=== PATIENT | male | born 1955 | race African-American/Black ===

== ENCOUNTER 2017-03-23 22:44 | Observation (INO) | payer OTHER ==
[2017-03-23 23:12] LABS: BASOPHILS % (AUTO) 2.5 %; EOSINOPHILS % (AUTO) 1.2 %; HCT - HEMATOCRIT 37.4 % (42.0-52.0); HGB - HEMOGLOBIN 12.4 g/dL (14.0-18.0); LYMPHOCYTES % (AUTO) 29.4 %; MEAN CORPUSCULAR HEMOGLOBIN 28.1 pg (27.0-31.0); MEAN CORPUSCULAR HGB CONC 33.2 g/dL (32.0-36.0); MEAN CORPUSCULAR VOLUME 84.9 fL (80.0-94.0); MEAN PLATELET VOLUME 8.8 fL (7.4-11.4); MONOCYTES % (AUTO) 8.4 %; NEUTROPHILS % (AUTO) 58.5 %; RED BLOOD COUNT 4.41 10^6/uL (4.70-6.10); RED CELL DISTRIBUTION WIDTH 13.5 % (12.0-15.0); UNCORRECTED WHITE BLOOD COUNT 10.2 x10^3/uL; WHITE BLOOD COUNT 10.2 x10^3/uL (4.8-10.8)
[2017-03-23 23:18] LABS: BAND NEUTROPHILS % (MANUAL) 0 %
[2017-03-23 23:21] LABS: ALBUMIN/GLOBULIN RATIO 1.2 (1.0-2.2); BILIRUBIN,TOTAL 0.4 mg/dL (0.2-1.0); CREATININE 0.9 mg/dL (0.6-1.2); TOTAL PROTEIN 7.1 g/dL (6.7-8.2)
--- NOTE | 2017-03-23 23:22 | XRAY Preliminary Report ---
Exam: XR CHEST 2 VIEW PA/LAT IMPRESSION: Mild diffuse bilateral airspace disease with interstitial opacities in the lungs, could r epresent mild pulmonary edema. Infectious/inflammatory disease not excluded. Small bilateral pleural effusions. [facility] SITE ID: [id number]
--- NOTE | 2017-03-23 23:25 | XRAY Report ---
EXAM: CHEST RADIOGRAPHY EXAM DATE: 03/23/2017 11:09 PM. CLINICAL HISTORY: Short of breath. COMPARISON: None. TECHNIQUE: 2 views. FINDINGS: Lungs/Pleura: Mild diffuse bilateral airspace disease with interstitial opacities in the lungs, could represent mild pulmonary edema. Small bilateral pleural effusions. No pneumothorax. Mediastinum: Borderline cardiomegaly. Other: Mild T8 anterior compression of the vertebral body, appears chronic. IMPRESSION: Mild diffuse bilateral airspace disease with interstitial opacities in the lungs, could r epresent mild pulmonary edema. Infectious/inflammatory disease not excluded. Small bilateral pleural effusions. [facility] Referring Provider Line: [phone] SITE ID: [id number]
[2017-03-23 23:31] LABS: LYMPHOCYTES % (MANUAL) 35 %; NEUTROPHILS % (MANUAL) 58 %; TOTAL CELLS COUNTED 100
[2017-03-23 23:32] LABS: NP AUTO DIFFERENTIAL? YES; NP MAN DIFFERENTIAL? NO; PLATELET ESTIMATE, MANUAL NORMAL (130-450,000) (NORMAL); PLATELET MORPHOLOGY NORMAL APPEARANCE (NORMAL)
[2017-03-23] MEDS ORDERED: NITROGLYCERIN 2% PASTE TOP STA (23:40)
[2017-03-23] MEDS ORDERED: FUROSEMIDE 40 MG/4 ML VIAL IVP STA (23:40)
[2017-03-23] MEDS ORDERED: PROMETHAZINE 25 MG/1 ML VIAL IM PRN (23:48)
[2017-03-23] MEDS ORDERED: PROCHLORPERAZINE 10 MG/2 ML VIAL IVP PRN (23:48)
[2017-03-23] MEDS ORDERED: ONDANSETRON 4 MG/2 ML VIAL IVP PRN (23:48)
[2017-03-23] MEDS ORDERED: HYDROcod/ACETAM 10 MG/325 MG TABLET PO PRN (23:48)
[2017-03-23] MEDS ORDERED: HYDROcod/ACETAM 5/325 MG TABLET PO PRN (23:48)
[2017-03-23] MEDS ORDERED: ACETAMINOPHEN 325 MG TABLET PO PRN (23:48)
[2017-03-23] MEDS ORDERED: NITROGLYCERIN 2% PASTE TOP ONE (23:49)
[2017-03-23] MEDS ORDERED: FUROSEMIDE 40 MG/4 ML VIAL ONE (23:49)
--- NOTE | 2017-03-23 23:50 | ED Physician Documentation ---
PD HPI DYSPNEA - Stated complaint Stated Complaint: SOA - Chief complaint Chief Complaint: Resp - History obtained from History obtained from: Patient, Family - History of Present Illness Timing - onset: How many days ago (3) Timing - details: Gradual onset, Intermittant, Waxing and waning Inciting event(s): Exercise Improved by: Sitting up Worsened by: Exertion, Laying flat Associated symptoms: Bilateral edema. No: Fever, Cough, Hemoptysis, Wheezing, Chest pain / discomfort, Diaphoresis Similar symptoms before: No diagnosis Recently seen: Not recently seen - Additional information Additional information: Patient is a 62 year old male with a history of diabetes, htn who is presenting to the emergency department for shortness of breath. Patient states that it gets worse when he caries his groceries, walks or lies down at night. Patient denies any chest pain with the exertion. Patient states that his legs have been swelling for a few years. last echo and stress test was at [facility] in [place] about 5 years prior. Review of Systems Constitutional: denies: Fever, Chills Eyes: denies: Decreased vision, Photophobia Ears: denies: Ear pain, Drainage/discharge Nose: denies: Rhinorrhea / runny nose, Congestion Throat: reports: Reviewed and negative Cardiac: reports: Pedal edema. denies: Chest pain / pressure, Calf pain Respiratory: reports: Dyspnea. denies: Cough, Wheezing GI: denies: Nausea, Vomiting, Constipation, Diarrhea : denies: Dysuria, Frequency Skin: denies: Rash, Lesions Musculoskeletal: reports: Extremity swelling. denies: Neck pain, Back pain, Extremity pain Neurologic: denies: Generalized weakness, Numbness Immunocompromised: denies: Immunocompromised PD PAST MEDICAL HISTORY - Past Medical History Past Medical History: Yes Cardiovascular: Hypertension Endocrine/Autoimmune: Type 2 diabetes - Past Surgical History Past Surgical History: Yes - Present Medications Home Medications: Ambulatory Orders Medication Instructions Recorded Confirmed Aspirin 81 mg DAILY 05/22/14 03/23/17 Cetirizine [ZyrTEC] 10 mg DAILY 05/22/14 03/23/17 Insulin Glargine [Lantus] 42 units SQ DAILY 05/22/14 03/23/17 Lisinopril 40 mg ORAL DAILY 05/22/14 03/23/17 Metformin HCl 1,000 mg ORAL BID 05/22/14 03/23/17 - Allergies Allergies/Adverse Reactions: Allergies Allergy/AdvReac Type Severity Reaction Status Date / Time No Known Drug Allergies Allergy Verified 05/22/14 08:42 - Social History Does the pt smoke?: No Smoking Status: Never smoker Does the pt drink ETOH?: No Does the pt have substance abuse?: No - Immunizations Immunizations are current?: Yes - POLST Patient has POLST: No PD ED PE NORMAL - Vitals Vital signs reviewed: Yes - General General: Alert and oriented X 3 - HEENT HEENT: Atraumatic, PERRL PD ED PE EXPANDED - Respiratory Respiratory: Decreased breath sounds, Right lower lobe, Left lower lobe, Other ( tachypneic) - Abdomen Abdomen: Other (obese) - Extremities Extremities: Pedal edema bilateral Results - Vitals Vitals: Vital Signs - 24 hr 03/23/17 03/23/17 22:46 23:50 Temperature 36.8 C 36.4 C L Heart Rate 71 61 Respiratory 20 22 Rate Blood Pressure 242/72 H 178/66 H O2 Saturation 96 97 Oxygen O2 Source Room air - EKG (time done) 2253 Rate: Rate (enter#) (83) Rhythm: NSR [place]: Normal Intervals: Normal NM QRS: Normal, Low voltage Compare to prior EKG: Old EKG unavailable - Labs Labs: Laboratory Tests 03/23/17 03/23/17 03/23/17 22:58 22:58 22:58 WBC 10.2 RBC 4.41 L Hgb 12.4 L Hct 37.4 L MCV 84.9 MCH 28.1 MCHC 33.2 RDW 13.5 Plt Count 212 MPV 8.8 Neut # Not Reportable Lymph # Not Reportable [place] # Not Reportable Eos # Not Reportable Baso # Not Reportable Absolute Nucleated RBC Not Reportable Total Counted 100 Band Neuts % (Manual) 0 Reactive Lymphs % (Man) 3 Nucleated RBC % Not Reportable Neutrophils # (Manual) 5.9 Lymphocytes # (Manual) 3.9 H Monocytes # (Manual) 0.4 Differential Comment MANUAL DIFFERENTIAL Manual Slide Review Indicated Platelet Estimate NORMAL (130-450,000) Platelet Morphology NORMAL APPEARANCE RBC Morph Micro Appear NORMAL APPEARANCE Sodium 140 Potassium 4.0 Chloride 105 Carbon Dioxide 27 Anion Gap 8.0 BUN 15 Creatinine 0.9 Estimated GFR (MDRD) 103 Glucose 169 H Calcium 9.0 Total Bilirubin 0.4 AST 25 ALT 35 Alkaline Phosphatase 59 Troponin I < 0.04 B-Natriuretic Peptide Total Protein 7.1 Albumin 3.8 Globulin 3.3 Albumin/Globulin Ratio 1.2 Lipase 22 03/23/17 22:58 WBC RBC Hgb Hct MCV MCH MCHC RDW Plt Count MPV Neut # Lymph # [place] # Eos # Baso # Absolute Nucleated RBC Total Counted Band Neuts % (Manual) Reactive Lymphs % (Man) Nucleated RBC % Neutrophils # (Manual) Lymphocytes # (Manual) Monocytes # (Manual) Differential Comment Manual Slide Review Platelet Estimate Platelet Morphology RBC Morph Micro Appear Sodium Potassium Chloride Carbon Dioxide Anion Gap BUN Creatinine Estimated GFR (MDRD) Glucose Calcium Total Bilirubin AST ALT Alkaline Phosphatase Troponin I B-Natriuretic Peptide 151 H Total Protein Albumin Globulin Albumin/Globulin Ratio Lipase - Rads (name of study) chest x-ray Radiology: Final report received (pulmonary edema) PD MEDICAL DECISION MAKING - ED course Complexity details: reviewed old records, reviewed results, re-evaluated patient , considered differential, d/w patient, d/w family ED course: Patient was seen and examined at bedside. ekg was performed and patient was placed on a monitor. IV access was gained and labs were drawn. Patient was sent for imaging. When patient returned from imaging the results were reviewed and showed mild pulmonary edema. Patient was also found to have a bnp of 151. Patient was treated with lasix 40mg iv. nitro was originally ordered but patient's bp had improved even before the lasix was given. Patient and family were made aware of the findings. Case was discussed with the hospitalist who accepted the patient for observation for an echo. Patient was placed in observation in stable condition. Departure - Departure Disposition: ED Place in Observation Clinical Impression: Congestive heart failure Condition: Good
[2017-03-24] MEDS: SODIUM CHLORIDE FLUSH 0.9% 10 ML SYRINGE IVP PRN ×2 (01:20→10:28)
--- NOTE | 2017-03-24 01:51 | HISTORY & PHYSICAL EXAMINATION ---
Chief Complaint - Chief Complaint Chief Complaint: Shortness of air History of Present Illness - Admitted From Admitted From:: Emergency department - History Obtained From Records Reviewed: Yes History obtained from: Patient Exam Limitations: None - History of Present Illness HPI Comment/Other: Patient is a 62-year-old gentleman with a past medical history significant for type 2 diabetes, hypertension, obstructive sleep apnea on CPAP, obesity and history of corneal transplant 5 years ago who presented to the emergency department with a chief complaint of shortness of air. The patient states that he was in his normal state of health until yesterday when he states that he noticed when he was going up and down he would go up the stairs in his house he became winded. At that time the patient did not make much of the however today the patient states that he was returning from the commissary after getting groceries. He states that he carried his groceries up the stairs and when he got to the top of the stairs he states it felt as though he had run a mile. He states that he was completely out of breath and thought he could hear some wheezing. He states that he had to rest for at least a few minutes before he was able to catch his breath again. He states he then went back downstairs to get the rest of the groceries when he got up the stairs again he felt as though he had run a mile and was having respiratory distress and felt as though he could not breathe. The patient states that he again rested for some time before the symptoms seem to resolve. The patient states that he watched football for most of the day but later had to go up the stairs again and had the same symptoms. Although the patient was concerned at this point he did not think it warranted going into the hospital. He states that this evening he went to lie on his bed and place his CPAP machine over his face. He states that when he lied flat he again felt very short of breath and could not keep his CPAP machine on because he states that he was breathing too fast. The patient states that he then looked up symptoms of heart attack on the Internet and found that shortness of breath was 1 of the top symptoms and became very concerned that he may be having a heart attack so he came into the emergency department. The patient states that he was previously having some increased lower extremity edema and was placed on a water pill for that. He states that this is improved since and he was not having any increased lower extremity swelling. The patient also states that he woke up this morning with a headache but otherwise denies any chest pain, palpitations or PND. The patient otherwise denies any blurred vision, runny nose, sore throat, nasal congestion, difficulty swallowing, neck pain, abdominal pain, nausea, vomiting, diaphoresis, urinary urgency, urinary frequency, dysuria, joint pain, joint swelling, muscle aches, back pain, neck stiffness, changes in appetite, recent unintentional weight loss, polydipsia, polyuria or any focal neurologic deficits. On presentation to the emergency department the patient was afebrile and heart rate was within normal limits. The patient however was very hypertensive with initial blood pressure of 242/72 which did improve just with time down to 178/ 66. The patient did appear to be tachypneic when he initially arrived in the emergency department but seem to settle down with time. The patient was not hypoxic. The patient's initial lab work was significant for glucose of 169 and a BNP of 151 otherwise was within normal limits. The patient's troponin was less than 0.04. The patient's chest x-ray showed mild diffuse bilateral airspace disease with interstitial opacities in the lungs, could represent mild pulmonary edema. There was also small bilateral pleural effusions. The patient 's EKG showed a normal sinus rhythm and did not have any ST elevations or ischemic changes to suggest an acute coronary syndrome. Given the patient's very typical presentation of shortness of breath with exertion and orthopnea as well as some lower extremity edema with pulmonary edema on the chest x-ray the patient was thought to have new onset congestive heart failure and was placed in observation for an echocardiogram and treatment with IV Lasix. History - Past Medical History Cardiovascular: reports: Hypertension, Other (Obesity) Respiratory: reports: Sleep apnea, CPAP use Endocrine/Autoimmune: reports: Type 2 diabetes MRSA Hx?: No - Past Surgical History General: reports: Colonoscopy HEENT: reports: Other (Corneal transplant) - Family & Social History Family History: Mother: , CVA/TIA, Diabetes, Type 2, Father: , Sister: , Diabetes, Type 2 Living arrangement: At home Living Situation: With spouse/s.o. Social History Notes: The patient lives in [place] with his whom he has been to for 45 years. The patient has 3 children 2 of whom live on [facility] and one who lives in [place]. The patient is originally from [place], [place] and served in the [employer] for many years eventually retiring from the [employer] in [place]. The patient is a former smoker he quit nearly 30 years ago but did smoke half a pack a day for nearly 25 years. He denies any alcohol or illicit drug use. - Substance History Use: Uses substance without health or social issues: NONE Abuse: Recurrent use of substance despite neg consequences: NONE Dependence: Experiences withdrawal or developed tolerances: NONE - POLST Patient has POLST: No POLST Status: Full Code Meds/Allgy - Home Medications Home Medications: Ambulatory Orders Medication Instructions Recorded Confirmed Aspirin 81 mg DAILY 05/22/14 03/23/17 Cetirizine [ZyrTEC] 10 mg DAILY 05/22/14 03/23/17 Insulin Glargine [Lantus] 42 units SQ DAILY 05/22/14 03/23/17 Lisinopril 40 mg ORAL DAILY 05/22/14 03/23/17 Metformin HCl 1,000 mg ORAL BID 05/22/14 03/23/17 - Allergies Allergies/Adverse Reactions: Allergies Allergy/AdvReac Type Severity Reaction Status Date / Time No Known Drug Allergies Allergy Verified 05/22/14 08:42 Review of Systems - Other Findings Other Findings: A comprehensive review of systems was performed the pertinent positives and negatives are stated above in the HPI and the remainder of the review of systems is negative. Exam - Vital Signs Reviewed Vital Signs: Yes Vital Signs: Vital Signs x48h Temp Pulse Pulse Resp BP BP Pulse Ox 03/24/17 01:00 36.6 C 59 L 18 162/80 H 97 03/23/17 23:50 36.4 C L 61 22 178/66 H 97 - Physical Exam General Appearance: positive: Alert, Mild distress (Short of breath with any exertion) Eyes Bilateral: positive: Normal inspection, PERRL, EOMI, No lid inflammation, Conjunctivae nml, No scleral icterus ENT: positive: ENT inspection nml, Pharynx nml, No signs of dehydration. negative: Purulent nasal drainage, Pharyngeal erythema, Oral lesions Neck: positive: Nml inspection, Thyroid nml, No JVD, Trachea midline. negative : Thyromegaly, Lymphadenopathy (R), Lymphadenopathy (L), Stiff neck, Carotid bruit, Tracheal deviation Respiratory: positive: Chest non-tender, Rales (Bilateral crackles at the bases. As well as fine crackles throughout both lungs), Other (Patient mildly tachypneic but no conversational dyspnea) Cardiovascular: positive: Regular rate & rhythm, No murmur, No gallop Peripheral Pulses: positive: 2+ Abdomen: positive: Non-tender, No organomegaly, Nml bowel sounds, Other (Obese) . negative: Guarding, Rebound, Hepatomegaly Back: positive: Nml inspection. negative: CVA tenderness (R), CVA tenderness (L ) Skin: positive: Color nml, No rash, Warm. negative: Cyanosis, Diaphoresis, Pallor Extremities: positive: Non-tender, Full ROM, Nml appearance, No pedal edema. negative: Joint swelling Neurologic/Psychiatric: positive: Oriented x3, CN's nml (2-12), Motor nml, Sensation nml, Mood/affect nml Conclusion/Plan - Problem List (1) Dyspnea on exertion Conclusion/Plan: Patient presented with dyspnea on exertion. Specifically going up 1 flight of stairs at home. Symptoms started yesterday and have become progressively worse today. Patient also experienced orthopnea. He had bilateral lower extremity edema on presentation 1+ pitting. The patient's chest x-ray showed pulmonary edema and bilateral pleural effusions. Patient was afebrile and had no leukocytosis. Patient had no cough. Patient's troponin and EKG were negative. The patient's presentation seems very typical for congestive heart failure. Patient has no history of congestive heart failure and did have an echocardiogram and stress test 5 years ago that were normal at [facility] in [place]. Patient was hypotensive on presentation and could have pulmonary edema from uncontrolled hypertension. Either way this appears to be new onset congestive heart failure. The patient was not hypoxic but was short of breath and tachypneic on presentation. Patient's symptoms did improve with some IV Lasix in the emergency department. Plan: IV Lasix twice daily Oxygen as needed Monitor I's and O's Daily weights 2 L fluid restriction Echocardiogram If patient has systolic dysfunction we will need to add metoprolol patient is already on lisinopril. If patient has wall motion abnormalities will need to consider transferring him for a cardiac cath. Monitor on telemetry (2) Hypertension Conclusion/Plan: Patient is blood pressure was uncontrolled on presentation. This may have been white coat syndrome as it did improve on its own. However patient's blood pressure was still elevated. The patient is on lisinopril at home. Plan: We will continue the patient's home dose of lisinopril Monitor patient's blood pressure and if the patient's blood pressure continues to be elevated we will may need to add additional antihypertensives Qualifiers: Hypertension type: essential hypertension Qualified Code(s): I10 - Essential (primary) hypertension (3) Diabetes Conclusion/Plan: Patient has insulin-dependent diabetes. Patient's blood glucose was controlled when he presented. Plan: We will place patient on home dose of Lantus We will hold metformin while patient is hospitalized Patient will be placed on sliding scale insulin with meals We will monitor patient's blood glucose before meals at bedtime Qualifiers: Diabetes mellitus type: type 2 (4) MAGDA on CPAP Conclusion/Plan: Patient is on CPAP at home. Patient advised to bring in his CPAP and will be able to use it in the hospital. - Lab Results Lab results reviewed: Yes Fish Bones: 03/23/17 22:58 03/23/17 22:58 Other Lab Results: Laboratory Results WBC 10.2 x10^3/uL (4.8-10.8) 03/23/17 22:58 RBC 4.41 10^6/uL (4.70-6.10) L 03/23/17 22:58 Hgb 12.4 g/dL (14.0-18.0) L 03/23/17 22:58 Hct 37.4 % (42.0-52.0) L 03/23/17 22:58 MCV 84.9 fL (80.0-94.0) 03/23/17 22:58 MCH 28.1 pg (27.0-31.0) 03/23/17 22:58 MCHC 33.2 g/dL (32.0-36.0) 03/23/17 22:58 RDW 13.5 % (12.0-15.0) 03/23/17 22:58 Plt Count 212 10^3/uL (130-450) 03/23/17 22:58 MPV 8.8 fL (7.4-11.4) 03/23/17 22:58 Neut # Not Reportable 03/23/17 22:58 Lymph # Not Reportable 03/23/17 22:58 [place] # Not Reportable 03/23/17 22:58 Eos # Not Reportable 03/23/17 22:58 Baso # Not Reportable 03/23/17 22:58 Absolute Nucleated RBC Not Reportable 03/23/17 22:58 Total Counted 100 03/23/17 22:58 Band Neuts % (Manual) 0 % (0-10) 03/23/17 22:58 Reactive Lymphs % (Man) 3 % 03/23/17 22:58 Nucleated RBC % Not Reportable 03/23/17 22:58 Neutrophils # (Manual) 5.9 10^3/uL (1.5-6.6) 03/23/17 22:58 Lymphocytes # (Manual) 3.9 10^3/uL (1.5-3.5) H 03/23/17 22:58 Monocytes # (Manual) 0.4 10^3/uL (0.0-1.0) 03/23/17 22:58 Differential Comment MANUAL DIFFERENTIAL 03/23/17 22:58 Manual Slide Review Indicated 03/23/17 22:58 Platelet Estimate NORMAL (130-450,000) (NORMAL) 03/23/17 22:58 Platelet Morphology NORMAL APPEARANCE (NORMAL) 03/23/17 22:58 RBC Morph Micro Appear NORMAL APPEARANCE (NORMAL) 03/23/17 22:58 Sodium 140 mmol/L (135-145) 03/23/17 22:58 Potassium 4.0 mmol/L (3.5-5.0) 03/23/17 22:58 Chloride 105 mmol/L (101-111) 03/23/17 22:58 Carbon Dioxide 27 mmol/L (21-32) 03/23/17 22:58 Anion Gap 8.0 (6-13) 03/23/17 22:58 BUN 15 mg/dL (6-20) 03/23/17 22:58 Creatinine 0.9 mg/dL (0.6-1.2) 03/23/17 22:58 Estimated GFR (MDRD) 103 (>89) 03/23/17 22:58 Glucose 169 mg/dL (70-100) H 03/23/17 22:58 Calcium 9.0 mg/dL (8.5-10.3) 03/23/17 22:58 Total Bilirubin 0.4 mg/dL (0.2-1.0) 03/23/17 22:58 AST 25 IU/L (10-42) 03/23/17 22:58 ALT 35 IU/L (10-60) 03/23/17 22:58 Alkaline Phosphatase 59 IU/L (42-121) 03/23/17 22:58 Troponin I < 0.04 ng/mL (<0.49) 03/23/17 22:58 B-Natriuretic Peptide 151 pg/mL (5-100) H 03/23/17 22:58 Total Protein 7.1 g/dL (6.7-8.2) 03/23/17 22:58 Albumin 3.8 g/dL (3.2-5.5) 03/23/17 22:58 Globulin 3.3 g/dL (2.1-4.2) 03/23/17 22:58 Albumin/Globulin Ratio 1.2 (1.0-2.2) 03/23/17 22:58 Lipase 22 U/L (22-51) 03/23/17 22:58 - Diagnostic Imaging Results Diagnostic Imaging Results: positive: Final report reviewed Diagnostic Imaging Results Comments: Chest x-ray Impression: Mild diffuse bilateral airspace disease with interstitial opacities in the lungs , could represent mild pulmonary edema. Infectious/inflammatory disease not excluded. Bilateral pleural effusions. - EKG Results EKG Interpreted Independently: Yes EKG Findings: Normal sinus rhythm, no ST elevations or ischemic changes noted. Issues/Core Measures - Anticipated LOS Anticipated Stay Length: Less than 2 midnights - DVT/VTE - Prophylaxis VTE/DVT Prophylaxis med ordered at admit?: Yes
[2017-03-24] MEDS ORDERED: SODIUM CHLORIDE FLUSH 0.9% 10 ML SYRINGE IVP SCH (06:00)
[2017-03-24 06:03] LABS: BASOPHILS % (AUTO) 0.3 %; EOSINOPHILS # (AUTO) 0.1 10^3/uL (0.0-0.7); HGB - HEMOGLOBIN 12.1 g/dL (14.0-18.0); LYMPHOCYTES # (AUTO) 1.8 10^3/uL (1.5-3.5); LYMPHOCYTES % (AUTO) 19.2 %; MEAN CORPUSCULAR HEMOGLOBIN 28.5 pg (27.0-31.0); MEAN CORPUSCULAR HGB CONC 33.7 g/dL (32.0-36.0); MEAN CORPUSCULAR VOLUME 84.6 fL (80.0-94.0); MEAN PLATELET VOLUME 8.1 fL (7.4-11.4); MONOCYTES % (AUTO) 10.6 %; NEUTROPHILS # (AUTO) 6.5 10^3/uL (1.5-6.6); NEUTROPHILS % (AUTO) 68.9 %; NUCLEATED RED BLOOD CELLS AUTO 0.1 /100WBC; RED BLOOD COUNT 4.25 10^6/uL (4.70-6.10); RED CELL DISTRIBUTION WIDTH 13.5 % (12.0-15.0); UNCORRECTED WHITE BLOOD COUNT 9.4 x10^3/uL; WHITE BLOOD COUNT 9.4 x10^3/uL (4.8-10.8)
[2017-03-24 06:16] LABS: ALBUMIN/GLOBULIN RATIO 1.2 (1.0-2.2); BILIRUBIN,TOTAL 0.5 mg/dL (0.2-1.0); CALCIUM 8.6 mg/dL (8.5-10.3); CREATININE 0.8 mg/dL (0.6-1.2); MAGNESIUM 1.7 mg/dL (1.7-2.8); POTASSIUM 3.7 mmol/L (3.5-5.0); TOTAL PROTEIN 6.7 g/dL (6.7-8.2)
[2017-03-24 06:37] LABS: HEMOGLOBIN A1C 1.45 g/dL
--- NOTE | 2017-03-24 07:25 | PROVIDER PROGRESS NOTE ---
Subjective - Prog Note Date Prog Note Date: 03/24/17 Prog Note Time: 07:23 - Subjective Pt reports feeling: Improved (PATIENT SEEN AT BEDSIDE.) Current Medications - Current Medications Current Medications: Medications Summary Sodium Chloride (Normal Saline Flush 0.9%) 10 ml IVP PRN PRN PRN Reason: NEEDED PER PROVIDER ORDERS Last Admin: 03/24/17 01:20 Dose: 10 ml Sodium Chloride (Normal Saline Flush 0.9%) 10 ml IVP Q8HR MADAY Last Admin: 03/24/17 05:49 Dose: 10 ml Discontinued Medications Furosemide (Lasix Inj 40 Mg Vial) 40 mg IVP ONCE STA Stop: 03/23/17 23:41 Last Admin: 03/23/17 23:51 Dose: 40 mg Nitroglycerin (Nitro-Bid (Pkt)) 1 inch TOP ONCE STA Stop: 03/23/17 23:41 Last Admin: 03/23/17 23:54 Dose: Objective - Vital Signs/Intake & Output Reviewed Vital Signs: Yes Vital Signs: Vital Signs x48h Temp Pulse Pulse Resp BP BP Pulse Ox 03/24/17 05:00 36.8 C 64 18 147/57 H 97 03/24/17 01:00 36.6 C 59 L 18 162/80 H 97 03/23/17 23:50 36.4 C L 61 22 178/66 H 97 Intake & Output: Intake & Output 03/21/17 03/22/17 03/23/17 03/24/17 23:59 23:59 23:59 23:59 Intake Total 250 Output Total 2575 Balance -2325 - Objective General Appearance: positive: No acute distress, Alert Eyes Bilateral: positive: Normal inspection, PERRL, EOMI ENT: positive: ENT inspection nml, Pharynx nml, No signs of dehydration Neck: positive: Nml inspection, Thyroid nml, No JVD, Trachea midline Respiratory: positive: Chest non-tender, No respiratory distress, Rales Cardiovascular: positive: Regular rate & rhythm, No murmur, No gallop Abdomen: positive: Non-tender, No organomegaly, Nml bowel sounds, No distention Back: positive: Nml inspection Extremities: positive: Non-tender, Full ROM, Pedal edema (BILATERAL LOWER LEGS) Neurologic/Psychiatric: positive: Oriented x3, CN's nml (2-12), Motor nml, Sensation nml, Mood/affect nml - Lab Results Fish Bones: 03/24/17 05:41 03/24/17 05:41 Other Labs: Lab Results x24hrs 03/24/17 03/24/17 03/24/17 Range/Units 05:41 05:41 05:41 WBC (4.8-10.8) x10^3/uL RBC (4.70-6.10) 10^6/uL Hgb (14.0-18.0) g/dL Hct (42.0-52.0) % MCV (80.0-94.0) fL MCH (27.0-31.0) pg MCHC (32.0-36.0) g/dL RDW (12.0-15.0) % Plt Count (130-450) 10^3/uL MPV (7.4-11.4) fL Neut # (1.5-6.6) 10^3/uL Lymph # (1.5-3.5) 10^3/uL Pacific # (0.0-1.0) 10^3/uL Eos # (0.0-0.7) 10^3/uL Baso # (0.0-0.1) 10^3/uL Absolute Nucleated RBC x10^3/uL Nucleated RBC % /100WBC Sodium (135-145) mmol/L Potassium (3.5-5.0) mmol/L Chloride (101-111) mmol/L Carbon Dioxide (21-32) mmol/L Anion Gap (6-13) BUN (6-20) mg/dL Creatinine (0.6-1.2) mg/dL Estimated GFR (MDRD) (>89) Glucose (70-100) mg/dL Glycated Hemoglobin 13.0 H (4.6-6.2) % Estim Average Glucose 326 H (70-100) Calcium (8.5-10.3) mg/dL Magnesium (1.7-2.8) mg/dL Total Bilirubin (0.2-1.0) mg/dL AST (10-42) IU/L ALT (10-60) IU/L Alkaline Phosphatase (42-121) IU/L Troponin I < 0.04 (<0.49) ng/mL B-Natriuretic Peptide 152 H (5-100) pg/mL Total Protein (6.7-8.2) g/dL Albumin (3.2-5.5) g/dL Globulin (2.1-4.2) g/dL Albumin/Globulin Ratio (1.0-2.2) 03/24/17 03/24/17 Range/Units 05:41 05:41 WBC 9.4 (4.8-10.8) x10^3/uL RBC 4.25 L (4.70-6.10) 10^6/uL Hgb 12.1 L (14.0-18.0) g/dL Hct 36.0 L (42.0-52.0) % MCV 84.6 (80.0-94.0) fL MCH 28.5 (27.0-31.0) pg MCHC 33.7 (32.0-36.0) g/dL RDW 13.5 (12.0-15.0) % Plt Count 189 (130-450) 10^3/uL MPV 8.1 (7.4-11.4) fL Neut # 6.5 (1.5-6.6) 10^3/uL Lymph # 1.8 (1.5-3.5) 10^3/uL Pacific # 1.0 (0.0-1.0) 10^3/uL Eos # 0.1 (0.0-0.7) 10^3/uL Baso # 0.0 (0.0-0.1) 10^3/uL Absolute Nucleated RBC 0.01 x10^3/uL Nucleated RBC % 0.1 /100WBC Sodium 138 (135-145) mmol/L Potassium 3.7 (3.5-5.0) mmol/L Chloride 105 (101-111) mmol/L Carbon Dioxide 26 (21-32) mmol/L Anion Gap 7.0 (6-13) BUN 13 (6-20) mg/dL Creatinine 0.8 (0.6-1.2) mg/dL Estimated GFR (MDRD) 118 (>89) Glucose 125 H (70-100) mg/dL Glycated Hemoglobin (4.6-6.2) % Estim Average Glucose (70-100) Calcium 8.6 (8.5-10.3) mg/dL Magnesium 1.7 (1.7-2.8) mg/dL Total Bilirubin 0.5 (0.2-1.0) mg/dL AST 18 (10-42) IU/L ALT 29 (10-60) IU/L Alkaline Phosphatase 52 (42-121) IU/L Troponin I (<0.49) ng/mL B-Natriuretic Peptide (5-100) pg/mL Total Protein 6.7 (6.7-8.2) g/dL Albumin 3.6 (3.2-5.5) g/dL Globulin 3.1 (2.1-4.2) g/dL Albumin/Globulin Ratio 1.2 (1.0-2.2) - Diagnostic Imaging Diagnostic Imaging Results: positive: Final report reviewed Assessment/Plan - Problem List (1) Dyspnea on exertion Impression: ACUTE WITH CHF, UNSPECIFIED. patient having an echo today. continue on Lasix IV at 40mg BID.
[2017-03-24] MEDS ORDERED: POTASSIUM CHLORIDE 20 MEQ TABLET PO SCH (08:00)
[2017-03-24] MEDS ORDERED: INSULIN ASPART 300 UNIT/3 ML PEN SUBQ SCH (08:00)
[2017-03-24] MEDS ORDERED: MAGNESIUM SULFATE 2 GRAM 2 GM/50 ML BAG IV SCH (08:00)
[2017-03-24] MEDS ORDERED: ENOXAPARIN 40 MG/0.4 ML SYRINGE SUBQ SCH (09:00)
[2017-03-24] MEDS ORDERED: LISINOPRIL 20 MG TABLET PO SCH (09:00)
[2017-03-24] MEDS ORDERED: ASPIRIN CHEW 81 MG TABLET PO SCH (09:00)
[2017-03-24] MEDS ORDERED: INSULIN GLARGINE 300 UNIT/3 ML PEN SUBQ SCH (09:00)
[2017-03-24] MEDS ORDERED: FUROSEMIDE 40 MG/4 ML VIAL IVP SCH (09:00)
[2017-03-24] MEDS ORDERED: POLYETHYLENE GLYCOL 3350 17 GM PACKET PO SCH (09:00)
[2017-03-24] MEDS ORDERED: FAMOTIDINE 20 MG TABLET PO SCH (09:00)
[2017-03-24 11:43] VITALS: BP 159/63
--- NOTE | 2017-03-24 12:41 | Discharge Plan ---
Discharge Plan Disposition: Home, Self Care Condition: Good Prescriptions: Furosemide [Lasix] 40 mg PO DAILY #10 tablet RX: Potassium Chloride [K-Dur] 20 meq PO DAILYWM #20 tablet Diet: Diabetic Activity Restrictions: Activity as Tolerated Shower Restrictions: No Driving Restrictions: No Weight Bearing: Full Weight Instruction Topics: Heart Failure Warning Signs, Heart Failure Tracking Weight , Heart Failure Diet Changes Additional Instructions or Follow Up instructions: PLEASE SEE YOUR PRIMARY CARE PROVIDER WITHIN THE NEXT WEEK. YOU WILL NEED TO MAKE SURE TO LET THEM KNOW YOU ARE TAKING LASIX NOW. YOU WILL NEED TO MONITOR YOUR BLOOD GLUCOSE WITH EACH MEAL AND TALK WITH YOUR PCP ABOUT INCREASING YOUR INSULIN DOSAGE. YOU WILL NEED TO CONTINUE ON A LOW CALORIE DIABETIC DIET. YOUR HEMOGLOBIN A1C WAS 13 AND NEEDS BETTER CONTROL. YOU NEED TO GET DAILY EXERCISE, WALKING IS GOOD. YOU NEED TO AVOID SODA AND HIGH SODIUM FOODS THAT CAN WORSEN THE CONGESTIVE HEART FAILURE. RETURN TO THE ER IF YOUR SYMPTOMS RETURN OR IF YOU HAVE CHEST PAIN OR SHORTNESS OF BREATH THEN CALL 911. No Smoking: If you smoke, Please STOP! Call for help. Follow-up with: Noe Hartley DO [Primary Care Provider] -
--- NOTE | 2017-03-24 12:48 | DISCHARGE SUMMARY ---
"Discharge Summary Admit Date: 03/23/17 Discharge Date: 03/24/17 Discharging Provider: LARRY TURNER APRN Primary Care Provider: BE CARLSON MD Code Status: Attempt Resuscitation Condition at Discharge: Good Discharge Disposition: 01 Home, Self Care Discharge Facility Name: HOME - DIAGNOSES Admission Diagnoses: 1. ACUTE DYSPNEA WITH EXERTION POSSIBLE CHF, UNSPECIFIED 2. INSULIN DEPENDENT DIABETES MELLITUS WITH COMPLICATIONS 3. HYPERTENSIVE HEART DISEASE WITH CHF, UNSPECIFIED 4. MORBID OBESITY WITH BMI>40 WITH UNCONTROLLED DIABETES MELLITUS 5. CHRONIC OBSTRUCTIVE SLEEP APNEA Discharge Diagnoses with Status of Each Condition: 1. ACUTE DYSPNEA WITH EXERTION WITH DIASTOLIC CONGESTIVE HEART FAILURE WITH EF 70% 2. INSULIN DEPENDENT DIABETES MELLITUS WITH COMPLICATIONS 3. HYPERTENSIVE HEART DISEASE WITH DIASTOLIC CHF 4. MORBID OBESITY WITH BMI>40 WITH UNCONTROLLED DIABETES MELLITUS INSULIN DEPENDENT 5. CHRONIC OBSTRUCTIVE SLEEP APNEA WITH LVH 6. MIXED HYPERLIPIDEMIA - HPI History of Present Illness: History of Present Illness HPI Comment/Other: Patient is a 62-year-old gentleman with a past medical history significant for type 2 diabetes, hypertension, obstructive sleep apnea on CPAP, obesity and history of corneal transplant 5 years ago who presented to the emergency department with a chief complaint of shortness of air. The patient states that he was in his normal state of health until yesterday when he states that he noticed when he was going up and down he would go up the stairs in his house he became winded. At that time the patient did not make much of the however today the patient states that he was returning from the commissary after getting groceries. He states that he carried his groceries up the stairs and when he got to the top of the stairs he states it felt as though he had run a mile. He states that he was completely out of breath and thought he could hear some wheezing. He states that he had to rest for at least a few minutes before he was able to catch his breath again. He states he then went back downstairs to get the rest of the groceries when he got up the stairs again he felt as though he had run a mile and was having respiratory distress and felt as though he could not breathe. The patient states that he again rested for some time before the symptoms seem to resolve. The patient states that he watched football for most of the day but later had to go up the stairs again and had the same symptoms. Although the patient was concerned at this point he did not think it warranted going into the hospital. He states that this evening he went to lie on his bed and place his CPAP machine over his face. He states that when he lied flat he again felt very short of breath and could not keep his CPAP machine on because he states that he was breathing too fast. The patient states that he then looked up symptoms of heart attack on the Internet and found that shortness of breath was 1 of the top symptoms and became very concerned that he may be having a heart attack so he came into the emergency department. The patient states that he was previously having some increased lower extremity edema and was placed on a water pill for that. He states that this is improved since and he was not having any increased lower extremity swelling. The patient also states that he woke up this morning with a headache but otherwise denies any chest pain, palpitations or PND. The patient otherwise denies any blurred vision, runny nose, sore throat, nasal congestion, difficulty swallowing, neck pain, abdominal pain, nausea, vomiting, diaphoresis, urinary urgency, urinary frequency, dysuria, joint pain, joint swelling, muscle aches, back pain, neck stiffness, changes in appetite, recent unintentional weight loss, polydipsia, polyuria or any focal neurologic deficits. On presentation to the emergency department the patient was afebrile and heart rate was within normal limits. The patient however was very hypertensive with initial blood pressure of 242/72 which did improve just with time down to 178/ 66. The patient did appear to be tachypneic when he initially arrived in the emergency department but seem to settle down with time. The patient was not hypoxic. The patient's initial lab work was significant for glucose of 169 and a BNP of 151 otherwise was within normal limits. The patient's troponin was less than 0.04. The patient's chest x-ray showed mild diffuse bilateral airspace disease with interstitial opacities in the lungs, could represent mild pulmonary edema. There was also small bilateral pleural effusions. The patient 's EKG showed a normal sinus rhythm and did not have any ST elevations or ischemic changes to suggest an acute coronary syndrome. Given the patient's very typical presentation of shortness of breath with exertion and orthopnea as well as some lower extremity edema with pulmonary edema on the chest x-ray the patient was thought to have new onset congestive heart failure and was placed in observation for an echocardiogram and treatment with IV Lasix. - CONSULTS | PROCEDURES Consultations: NONE Procedures: ECHOCARDIOGRAM WITH IMPRESSION OF DIASTOLIC CHF WITH EF 70-75% - HOSPITAL COURSE Hospital Course: PATIENT WAS ADMITTED OBSERVATION FOR CONGESTIVE HEART FAILURE. HOSPITAL TREATMENT IS FOLLOWS: 1. ACUTE DYSPNEA WITH EXERTION WITH DIASTOLIC CONGESTIVE HEART FAILURE WITH EF 70% Patient admitted with echo completed and showed an EF of 70-75%. he was started on Lasix 40mg po daily and given potassium supplementation. he was put on supplemental oxygen as needed with NC. he continued on ZAK inhibitor home dosage. he was given an aspirin daily. He was instructed to elevate legs when sitting and provided VIKRAM hose. prescription for Lasix and potassium was given at discharge 2. INSULIN DEPENDENT DIABETES MELLITUS WITH COMPLICATIONS Patient hemoglobin A1C was 13. He was provided nutrition counseling and diabetic counseling for meal and portion control. He was on diabetic diet with sliding scale insulin as coverage. He continued on home dosage of lantus at 42 units at night 3. HYPERTENSIVE HEART DISEASE WITH DIASTOLIC CHF Patient continued on lisinopril and on telemetry. He had an EKG and cardiac markers were trended. troponins were negative 4. MORBID OBESITY WITH BMI>40 WITH UNCONTROLLED DIABETES MELLITUS INSULIN DEPENDENT Patient was counseled on diet and diabetes control. He was on diabetic diet and encouraged ambulation 5. CHRONIC OBSTRUCTIVE SLEEP APNEA WITH LVH Patient was on CPAP and oxygen NC. monitored pulse ox throughout the night. 6. MIXED HYPERLIPIDEMIA Patient is on aspirin therapy and preferred to not take a statin. He agreed to discuss taking statins with his PCP at his appt in the morning. Patient was discharged home with followup in the morning with his PCP and then will be seen by cardiology on referral. He verbally understood all instructions given and able to be safely discharged home. - ALLERGIES Allergies/Adverse Reactions: Allergies Allergy/AdvReac Type Severity Reaction Status Date / Time No Known Drug Allergies Allergy Verified 05/22/14 08:42 - MEDICATIONS Home Medications: Ambulatory Orders Medication Instructions Recorded Confirmed Aspirin 81 mg DAILY 05/22/14 03/23/17 Cetirizine [ZyrTEC] 10 mg DAILY 05/22/14 03/23/17 Insulin Glargine [Lantus] 42 units SQ DAILY 05/22/14 03/23/17 Lisinopril 40 mg ORAL DAILY 05/22/14 03/23/17 Metformin HCl 1,000 mg ORAL BID 05/22/14 03/23/17 Furosemide [Lasix] 40 mg PO DAILY #10 tablet 03/24/17 Potassium Chloride [K-Dur] 20 meq PO DAILYWM #20 tablet 03/24/17 - PHYSICAL EXAM AT DISCHARGE General Appearance: positive: No acute distress, Alert Eyes Bilateral: positive: Normal inspection, PERRL, EOMI ENT: positive: ENT inspection nml, Pharynx nml, No signs of dehydration Neck: positive: Nml inspection, Thyroid nml, No JVD, Trachea midline Respiratory: positive: Chest non-tender, No respiratory distress, Breath sounds nml Cardiovascular: positive: Regular rate & rhythm, No murmur, No gallop Peripheral Pulses: positive: 2+ Abdomen: positive: Non-tender, No organomegaly, Nml bowel sounds, No distention Back: positive: Nml inspection Skin: positive: Color nml, No rash, Warm, Dry Extremities: positive: Non-tender, Full ROM, Nml appearance, No pedal edema Neurologic/Psychiatric: positive: Oriented x3, CN's nml (2-12), Motor nml, Sensation nml, Mood/affect nml Physical Exam Other/Comments: Active Medications Generic Name Dose Route Start Last Admin Trade Name Freq PRN Reason Stop Dose Admin Acetaminophen 650 mg 03/23/17 23:48 Tylenol PO Q4HR PRN Pain 1 to 4 Acetaminophen/Hydrocodone Bitart 1 tab 03/23/17 23:48 [place] 5/325 PO Q4HR PRN Pain 5 to 7 Acetaminophen/Hydrocodone Bitart 1 tab 03/23/17 23:48 [place] 10 Mg/325 Mg PO Q4HR PRN Pain 8 to 10 Aspirin 81 mg 03/24/17 09:00 03/24/17 09:09 [facility] [place] Aspirin PO 81 mg DAILY MADAY Administration Enoxaparin Sodium 40 mg 03/24/17 09:00 03/24/17 09:10 Lovenox SUBQ Not Given DAILY MADAY Famotidine 20 mg 03/24/17 09:00 03/24/17 09:09 Pepcid PO 20 mg DAILY MADAY Administration Furosemide 40 mg 03/24/17 09:00 03/24/17 09:08 Lasix Inj 40 Mg Vial IVP 40 mg BID MADAY Administration Insulin Aspart 1 - 9 unit 03/24/17 08:00 03/24/17 08:02 Novolog SUBQ Not Given 0800,1200,1700,2100 [facility] Protocol Insulin Glargine 42 unit 03/24/17 09:00 03/24/17 09:08 Lantus Solostar SUBQ 42 unit DAILY MADAY Administration Lisinopril 40 mg 03/24/17 09:00 03/24/17 09:09 Zestril PO 40 mg DAILY MADAY Administration Ondansetron HCl 4 mg 03/23/17 23:48 Zofran Inj IVP Q6HR PRN Nausea / Vomiting Polyethylene Glycol 17 gm 03/24/17 09:00 03/24/17 10:27 Miralax PO Not Given DAILY MADAY Potassium Chloride 20 meq 03/24/17 08:00 03/24/17 09:08 K-Dur PO 20 meq DAILYWM MADAY Administration Prochlorperazine Edisylate 10 mg 03/23/17 23:48 Compazine Inj IVP Q6HR PRN Nausea / Vomiting Promethazine HCl 25 mg 03/23/17 23:48 Phenergan Inj IM Q6HR PRN Nausea / Vomiting Sodium Chloride 10 ml 03/23/17 23:48 03/24/17 10:28 Normal Saline Flush 0.9% IVP 10 ml PRN PRN Administration NEEDED PER PROVIDER ORDERS Sodium Chloride 10 ml 03/24/17 06:00 03/24/17 05:49 Normal Saline Flush 0.9% IVP 10 ml Q8HR MADAY Administration Aspirin 81 mg DAILY 05/22/14 Cetirizine [ZyrTEC] 10 mg DAILY 05/22/14 Insulin Glargine [Lantus] 42 units SQ DAILY 05/22/14 Lisinopril 40 mg ORAL DAILY 05/22/14 Metformin HCl 1,000 mg ORAL BID 05/22/14 - LABS Result Diagrams: 03/24/17 05:41 03/24/17 05:41 Other Lab Results: Abnormal Lab Results 03/23/17 03/23/17 03/23/17 22:58 22:58 22:58 RBC 4.41 10^6/uL L 10^6/uL (4.70-6.10) Hgb 12.4 g/dL L g/dL (14.0-18.0) Hct 37.4 % L % (42.0-52.0) Lymphocytes # (Manual) 3.9 10^3/uL H 10^3/uL (1.5-3.5) Glucose 169 mg/dL H mg/dL (70-100) POC Whole Bld Glucose Glycated Hemoglobin Estim Average Glucose B-Natriuretic Peptide 151 pg/mL H pg/mL (5-100) 03/24/17 03/24/17 03/24/17 05:41 05:41 05:41 RBC 4.25 10^6/uL L 10^6/uL (4.70-6.10) Hgb 12.1 g/dL L g/dL (14.0-18.0) Hct 36.0 % L % (42.0-52.0) Lymphocytes # (Manual) Glucose 125 mg/dL H mg/dL (70-100) POC Whole Bld Glucose Glycated Hemoglobin 13.0 % H % (4.6-6.2) Estim Average Glucose 326 H (70-100) B-Natriuretic Peptide 03/24/17 03/24/17 05:41 07:44 RBC Hgb Hct Lymphocytes # (Manual) Glucose POC Whole Bld Glucose 115 mg/dL H mg/dL (70 - 100) Glycated Hemoglobin Estim Average Glucose B-Natriuretic Peptide 152 pg/mL H pg/mL (5-100) - DIAGNOSTIC IMAGING Diagnostic Imaging Results: Final report reviewed - FOLLOW UP Follow Up: PATIENT WAS INSTRUCTED TO SEE HIS PCP WITHIN THE FIRST WEEK OF DISCHARGE. HE VERBALLY UNDERSTOOD. 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 HE WAS INSTRUCTED TO RETURN TO THE ER IF SYMPTOMS BECOME WORSE. HE WAS TOLD TO CALL 911 IF HE HAS CHEST PAIN OR WORSENING SOB HE WAS DISCHARGED HOME WITH STABLE VITAL SIGNS - TIME SPENT Time Spent in Discharge (Minutes): 45 (PLANNING AND DISCHARGE ASSESSMENT)"
== END 2017-03-24 13:13 | disposition home or self-care (01) ==
LOC: ED 22:44 → OBS 23:48
PROVIDERS: ADMIT Internal Medicine; ATTEND Nurse Practitioner
DX: I11.0 Hypertensive heart disease with heart failure (principal); I50.31 Acute diastolic (congestive) heart failure; E11.65 Type 2 diabetes mellitus with hyperglycemia; Z79.4 Long term (current) use of insulin; E66.01 Morbid (severe) obesity due to excess calories; Z68.41 Body mass index [BMI] 40.0-44.9, adult; G47.33 Obstructive sleep apnea (adult) (pediatric); E78.2 Mixed hyperlipidemia; Z79.84 Long term (current) use of oral hypoglycemic drugs; Z79.82 Long term (current) use of aspirin; Z87.891 Personal history of nicotine dependence
CPT/HCPCS: 36415; 71020; 80053; 83036; 83690; 83735; 83880; 84484; 85025; 93005; 93306; 96365; 96375; 99284; A9270; G0378; J1815; 96374

== ENCOUNTER 2017-08-06 07:37 | Day surgery (SDC) | payer OTHER ==
[2017-08-06] MEDS ORDERED: LACTATED RINGERS 1,000 ML IV ONE (08:11)
[2017-08-06] MEDS ORDERED: fentaNYL 100 MCG/2 ML VIAL IVP ONE (09:21)
[2017-08-06] MEDS ORDERED: MIDAZOLAM 2 MG/2 ML VIAL IVP ONE (09:21)
--- NOTE | 2017-08-06 09:57 | PROCEDURE REPORT ---
DATE OF SERVICE: 08/06/2017 Physician: Vaughn Trevino MD PROCEDURE PERFORMED: Colonoscopy with polypectomy. SURGEON: Vaughn Trevino MD PRIMARY CARE: [place]. INDICATION: Screening. PREMEDICATIONS 1. Fentanyl 100 mcg. 2. Versed 5 mg intravenous titration. SEDATE: Total sedation time 17 minutes. DESCRIPTION OF PROCEDURE: After informed consent was obtained, the patient was placed in the left lateral decubitus position. The video colonoscope was introduced into the rectum and slowly advanced to cecum. On slow withdrawal, mucosa was carefully examined. The scope was removed. The patient tolerated the procedure well. BLOOD LOSS: None. COMPLICATIONS: None. FINDINGS 1. A 3 mm polyp at hepatic flexure jumbo biopsied and removed completely. 2. Otherwise, negative colonoscopy to cecum. Pending the biopsy result, patient will need followup colonoscopy in 5-10 years. TD: 08/06/2017 09:56
[2017-08-06 10:29] VITALS: BP 137/81
== END 2017-08-06 07:38 | disposition home or self-care (01) ==
LOC: SDS 07:37
PROVIDERS: ATTEND Internal Medicine
PROC: 0DBL8ZX Excision of Transverse Colon, Via Natural or Artificial Opening Endoscopic, Diagnostic (ICD-10-PCS; principal; 2017-08-06 09:00)
DX: Z12.11 Encounter for screening for malignant neoplasm of colon (principal); D12.3 Benign neoplasm of transverse colon; Z79.84 Long term (current) use of oral hypoglycemic drugs
CPT/HCPCS: 45380; J7120

== ENCOUNTER 2017-11-01 10:45 | Emergency (ER) | payer OTHER ==
--- NOTE | 2017-11-01 12:06 | ED Physician Documentation ---
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 denies: Back pain, Extremity swelling Endocrine: denies: Easy bruising / bleeding Immunocompromised: denies: Immunocompromised PD PAST MEDICAL HISTORY - Past Medical History Cardiovascular: None Respiratory: Sleep apnea, CPAP use Endocrine/Autoimmune: Type 2 diabetes GI: None : None HEENT: None Psych: None Musculoskeletal: Osteoarthritis Derm: None - Past Surgical History Past Surgical History: Yes General: Colonoscopy HEENT: Other - Present Medications Home Medications: Ambulatory Orders Medication Instructions Recorded Confirmed Aspirin 81 mg DAILY 05/22/14 08/06/17 Insulin Glargine [Lantus] 48 units SQ DAILY 05/22/14 08/06/17 Lisinopril 40 mg ORAL DAILY 05/22/14 08/06/17 Metformin HCl 1,000 mg ORAL BID 05/22/14 08/06/17 Cyclobenzaprine [Flexeril] 10 mg PO 11/01/17 Empagliflozin [Jardiance] 10 mg PO 11/01/17 11/01/17 Loratadine 10 mg PO 11/01/17 Meloxicam 15 mg PO 11/01/17 hydroCHLOROthiazide 25 mg PO 11/01/17 [Hydrochlorothiazide] - Allergies Allergies/Adverse Reactions: Allergies Allergy/AdvReac Type Severity Reaction Status Date / Time No Known Drug Allergies Allergy Verified 11/01/17 11:23 - Social History Does the pt smoke?: No Smoking Status: Never smoker Does the pt drink ETOH?: No Does the pt have substance abuse?: No - Immunizations Immunizations are current?: Yes - POLST Patient has POLST: No POLST Status: Full Code PD ED PE NORMAL - Vitals Vital signs reviewed: Yes - Cardiac Cardiac: RRR - Respiratory Respiratory: No respiratory distress - Abdomen Abdomen: Soft, Non tender - Derm Derm: Normal color - Extremities Extremities: No edema, Other (TTP posterior lateral thigh s mass redness swelling warmth) - Neuro Neuro: Alert and oriented X 3, No motor deficit, No sensory deficit Eye Opening: Spontaneous Motor: Obeys Commands Verbal: Oriented GCS Score: 15 Results - Vitals Vitals: Vital Signs - 24 hr 11/01/17 11/01/17 10:49 13:58 Temperature 36.9 C 36.8 C Heart Rate 85 71 Respiratory 18 18 Rate Blood Pressure 170/83 H 132/70 H O2 Saturation 96 97 Oxygen O2 Source Room air - Rads (name of study) doppler Radiology: See rad report (no DVT) PD MEDICAL DECISION MAKING - ED course ED course: reviewed pts MRI - he had no spine lesions, no pelvic mass, no AAA Departure - Departure Disposition: 01 Home, Self Care Clinical Impression: Paresthesia Condition: Good Instructions: ED Paraesthesias Follow-Up: PEDRITO YOO MD [Primary Care Provider] - Comments: The ultrasound was fine No blood clot was seen I looked at your MRI report and it does not seem you had any spine problems or aneurysm that might have caused the numbness and discomfort Your leg does not look infected The kidney tumor could possibly being putting pressure on one of the nerves to your leg causing these symptoms - normally the kidney is a bit higher than would expect to cause these symptoms but the tumor has probably enlarged the kidney I think it is safe for your to go home. If the symptoms go away after the tumor is removed then that was likely the cause. If not you may need further work up such as seeing a neurologist
--- NOTE | 2017-11-01 13:43 | Ultrasound Report ---
EXAM: LEFT LOWER EXTREMITY VENOUS ULTRASOUND EXAM DATE: 11/01/2017 01:17 PM. CLINICAL HISTORY: Left lower extremity pain, known cancer. COMPARISON: None. TECHNIQUE: Real-time sonographic vascular imaging was performed by the associate account director through the lower extremity utilizing both color-flow and Doppler spectral analysis. Multiple signs sales representative static bruno ges were saved for review. FINDINGS: Common Femoral Vein (CFV): Normal. CFV-GSV Junction: Normal. Profunda Femoral Vein (PFV): Normal. Femoral Vein (FV) Prox: Normal. Femoral Vein (FV) Mid: Normal. Femoral Vein (FV) Dist: Normal. Popliteal Vein: Normal. Posterior Tibial Veins: Normal. Peroneal Veins: Normal. Other: None. IMPRESSION: No evidence for deep venous thrombosis. [facility] Referring Provider Line: [phone] SITE ID: [id number]
[2017-11-01 13:59] VITALS: BP 132/70
== END 2017-11-01 14:15 | disposition home or self-care (01) ==
LOC: ED 10:45
DX: R20.2 Paresthesia of skin (principal); M79.652 Pain in left thigh; D49.512 Neoplasm of unspecified behavior of left kidney; G47.30 Sleep apnea, unspecified; E11.9 Type 2 diabetes mellitus without complications; M19.90 Unspecified osteoarthritis, unspecified site; Z79.4 Long term (current) use of insulin; Z79.82 Long term (current) use of aspirin
CPT/HCPCS: 99283

== ENCOUNTER 2018-02-01 07:54 | Emergency (ER) | payer MEDICARE, OTHER ==
[2018-02-01] MEDS ORDERED: DEXAMETHASONE 10 MG/ML VIAL PO STA (08:24)
--- NOTE | 2018-02-01 08:32 | ED Physician Documentation ---
PD HPI ABD PAIN - Stated complaint Stated Complaint: ABD PX/INCISION SITE POST OP - Chief complaint Chief Complaint: Abd Pain - History obtained from History obtained from: Patient - History of Present Illness Timing - onset: How many months ago (2) Timing - duration: Months (2) Timing - details: Abrupt onset, Still present Quality: Sharp, Pain Location: LUQ Radiation: Left flank Improved by: Laying still Worsened by: Moving, Position, Palpation Associated symptoms: Constipation. No: Fever, Nausea, Vomiting, Hematemesis, Diarrhea Similar symptoms before: Diagnosis (incisional pain) Recently seen: Clinic, Surgery - Additional information Additional information: 63-year-old male has had a recent procedure on his left kidney to remove a mass. He had this done 20 November. He has had pain in the incision site since that time and he has had relief of the pain with the use of oxycodone. He has not had improvement in the pain with use of ibuprofen or Tylenol. He has been back to see the surgeon he has been back to see his primary care doctor he has been supplied with pain medications from them and he is now run out. He continues to have this pain especially if he is up and moving around much at all. He does state that he has been fairly sedentary since the surgery to avoid increasing his pain. He also has increased pain when his bladder is full and is relieved somewhat when he empties his bladder. He has not had fever or vomiting. Review of Systems Constitutional: denies: Fever Eyes: denies: Decreased vision Ears: denies: Ear pain Nose: denies: Congestion Throat: denies: Sore throat Cardiac: denies: Chest pain / pressure, Palpitations Respiratory: denies: Dyspnea, Cough GI: reports: Abdominal Pain, Constipation. denies: Nausea, Vomiting, Diarrhea : denies: Dysuria, Frequency Skin: denies: Rash Musculoskeletal: denies: Neck pain, Back pain, Extremity pain PD PAST MEDICAL HISTORY - Past Medical History Past Medical History: Yes Cardiovascular: None Respiratory: Sleep apnea, CPAP use Endocrine/Autoimmune: Type 2 diabetes GI: None : None HEENT: None Psych: None Musculoskeletal: Osteoarthritis Derm: None - Past Surgical History Past Surgical History: Yes General: Colonoscopy HEENT: Other - Present Medications Home Medications: Ambulatory Orders Medication Instructions Recorded Confirmed Aspirin 81 mg DAILY 05/22/14 08/06/17 Insulin Glargine [Lantus] 48 units SQ DAILY 05/22/14 08/06/17 Lisinopril 40 mg ORAL DAILY 05/22/14 08/06/17 Metformin HCl 1,000 mg ORAL BID 05/22/14 08/06/17 Cyclobenzaprine [Flexeril] 10 mg PO 11/01/17 Empagliflozin [Jardiance] 10 mg PO 11/01/17 11/01/17 Loratadine 10 mg PO 11/01/17 Meloxicam 15 mg PO 11/01/17 hydroCHLOROthiazide 25 mg PO 11/01/17 [Hydrochlorothiazide] oxyCODONE/ACET 5/325 [Percocet 5 1 - 2 each PO Q6H PRN #12 tablet 02/01/18 mg/325 mg] - Allergies Allergies/Adverse Reactions: Allergies Allergy/AdvReac Type Severity Reaction Status Date / Time No Known Drug Allergies Allergy Verified 11/01/17 11:23 - Social History Does the pt smoke?: No Smoking Status: Never smoker Does the pt drink ETOH?: No Does the pt have substance abuse?: No - Immunizations Immunizations are current?: Yes - POLST Patient has POLST: No POLST Status: Full Code PD ED PE NORMAL - Vitals Vital signs reviewed: Yes (hypertensive ) - General General: Alert and oriented X 3, No acute distress, Well developed/nourished - HEENT HEENT: Atraumatic, PERRL, EOMI - Respiratory Respiratory: No respiratory distress - Back Back: No spinal TTP, Other (There is a well healed incision on the left anterolateral abdominal wall. There is no obvious inflamation to the incision itself, no drainage and no mass palpable. The area is mildly tender without garding. The patient is able to move about but with some pain. ) - Derm Derm: Normal color, Warm and dry, No rash - Extremities Extremities: No deformity, No edema - Neuro Neuro: Alert and oriented X 3, mangle tender 2-12 intact, No motor deficit, No sensory deficit, Normal speech Eye Opening: Spontaneous Motor: Obeys Commands Verbal: Oriented GCS Score: 15 - Psych Psych: Normal mood, Normal affect Results - Vitals Vitals: Vital Signs - 24 hr 02/01/18 08:05 Temperature 36 C L Heart Rate 76 Respiratory 16 Rate Blood Pressure 176/90 H O2 Saturation 98 Oxygen O2 Source Room air - Labs Labs: Laboratory Tests 02/01/18 08:41 Urine Color YELLOW Urine Clarity CLEAR Urine pH 6.0 Ur Specific [place] 1.025 Urine Protein NEGATIVE Urine Glucose (UA) >=1000 H Urine Ketones NEGATIVE Urine Occult Blood NEGATIVE Urine Nitrite NEGATIVE Urine Bilirubin NEGATIVE Urine Urobilinogen 0.2 (NORMAL) Ur Leukocyte Esterase NEGATIVE Ur Microscopic Review NOT INDICATED Urine Culture Comments NOT INDICATED PD MEDICAL DECISION MAKING - ED course Complexity details: reviewed results, re-evaluated patient, considered differential, d/w patient ED course: 63-year-old male with a surgical procedure to his left kidney who has persistent postoperative pain. I reviewed a recent CT of his abdomen and pelvis and I am able to see where the surgical procedure has been and the tract of healing around it. The patient has had postoperative pain is afebrile has run out of his pain medication 3 days ago and has not developed acute withdrawal symptoms. He is requesting a refill of his pain medication and I have agreed to provide several days worth of pain medication and have indicated to the patient he will need to return to his primary care doctor for continued pain management. In the meantime we have provided the patient with a dose of dexamethasone as well. - Sepsis Event Vital Signs: Vital Signs - 24 hr 02/01/18 08:05 Temperature 36 C L Heart Rate 76 Respiratory 16 Rate Blood Pressure 176/90 H O2 Saturation 98 Oxygen O2 Source Room air Departure - Departure Disposition: 01 Home, Self Care Clinical Impression: Post-operative pain Condition: Stable Instructions: Incision Care Abdomen, ED Strain Abdominal Muscle Follow-Up: PEDRITO YOO MD [Primary Care Provider] - Prescriptions: oxyCODONE/ACET 5/325 [Percocet 5 mg/325 mg] 1 - 2 each PO Q6H PRN #12 tablet PRN Reason: Pain
[2018-02-01 08:53] LABS: BILIRUBIN,URINE NEGATIVE (NEGATIVE); GLUCOSE, URINE (UA) >=1000 mg/dL (NEGATIVE); KETONES,URINE (UA) NEGATIVE (NEGATIVE); LEUKOCYTE ESTERASE, URINE NEGATIVE (NEGATIVE); NITRITE,URINE NEGATIVE (NEGATIVE); OCCULT BLOOD,URINE NEGATIVE (NEGATIVE); PROTEIN,URINE NEGATIVE (NEGATIVE); UROBILINOGEN,URINE 0.2 (NORMAL) E.U./dL (NORMAL)
[2018-02-01 08:55] LABS: CLARITY,URINE CLEAR (CLEAR)
[2018-02-01 09:21] VITALS: BP 178/88
== END 2018-02-01 09:21 | disposition home or self-care (01) ==
LOC: ED 07:54
DX: G89.18 Other acute postprocedural pain (principal); E11.9 Type 2 diabetes mellitus without complications; Z79.4 Long term (current) use of insulin
CPT/HCPCS: 81001; 81003; 87086; 99283

== ENCOUNTER 2018-06-05 15:28 | Outpatient (CLI) | payer MEDICARE, OTHER ==
--- NOTE | 2018-06-06 17:05 | Ultrasound Report ---
Reason: OTHER SPECIFIED DISORDERS OF KIDNEY AND URETER Procedure Date: 06/05/2018 Accession Number: [id number] / [id number] Procedure: US - Retroperitoneal CPT Code: FULL RESULT: EXAM: RENAL ULTRASOUND EXAM DATE: 06/05/2018 04:59 PM. CLINICAL HISTORY: OTHER SPECIFIED DISORDERS OF KIDNEY AND URETER. COMPARISON: None. TECHNIQUE: Real-time scanning was performed with static images obtained. FINDINGS: Right Kidney: 11.6 x 7.4 x 5.6 cm. Normal echotexture with no stones, contour-deforming masses, or hydronephrosis. Left Kidney: 11.6 x 5.8 x 6.7 cm. Normal echotexture with no stones, contour-deforming masses, or hydronephrosis. Bladder: Bilateral jets seen. The prevoid bladder volume was 509 cc. The postvoid bladder volume was 67 cc. Other: Echogenic liver. IMPRESSION: 1. No renal mass, stone or hydronephrosis. Given a history of a renal mass, recommend CT with contrast for further evaluation. 2. Normal bladder. 3. Fatty liver. RADIA
== END 2018-06-05 15:29 | disposition home or self-care (01) ==
LOC: DI 15:28
PROVIDERS: ATTEND Urology
DX: N28.89 Other specified disorders of kidney and ureter (principal); K76.0 Fatty (change of) liver, not elsewhere classified
CPT/HCPCS: 76770

== ENCOUNTER 2018-12-28 10:40 | Outpatient (CLI) | payer MEDICARE, OTHER ==
[2018-12-28 11:28] VITALS: BP 140/65
--- NOTE | 2018-12-28 11:28 | CONSULTATION NOTE ---
Information from patient questionnaire entered by Danuta Poon. I have reviewed and concur with the information entered by Danuta Poon. This document represents the service I personally performed and the decisions made by me, Jose Antonio Osman MD, [facility]. - History of Present Illness Chief Complaint: Other (Previously diagnosed obstructive sleep apnea, last seen 4 years ago) Mr. BARNES was diagnosed to have severe, AHI 48, obstructive sleep apnea- hypopnea syndrome in 2004 in [place] and presented today for consultation to continue CPAP therapy with [facility]. He has a Respironics CPAP that is 4 years old. It is set at 13 cmH20. He wears Respironics Nuance nasal pillows. His DME is [employer]. He uses the device every night and all night averaging 8.5 hours a night. The residual AHI is 0.7. Air leak is minimal. He reports sleeping and feeling significantly better on the treatment. The patient tells me that he normally goes to bed around 10:00 pm, and it takes him approximately 3 minutes to fall asleep. His bed partner can still sleep in the same bed. He can recall waking up on the average of 1 times during the night. Most of the time he wakes up because of having to use the restroom. Generally he can recall having dreams. He usually wakes up at 8:00am and feels refreshed. He usually does not have a morning headache. During the day he does not feel sleepy and fatigued. He has never fallen asleep while driving nor has any accident due to sleepiness. [place] Sleepiness Scale Score: 5 - Past Medical History Past Medical History: Hypertension, Diabetes (TYPE 2) - Allergies/Home Medications Allergies and home medications reviewed: Yes - Social History The patient's occupation is a RE. Patient is and lives in [place]. Smoked in the past 12 months: Yes Years of smokin Alcohol use: No Caffeine use: Yes Amount and frequency: 2 CUPS/DAY - Family History Family history of sleep disordered breathing: Yes Family Hx Sleep Apnea: Mother: Snoring - Review of Systems Weight loss over past 5 years: 20 Cardiovascular: reports: high blood pressure, leg or foot swelling Respiratory: denies: shortness of breath, wheeze, sputum production, chronic cough, other: Gastrointestinal: reports: abdominal pain Urinary: denies: incontinence, frequency, urgency, impotence, other: Neurological: denies: headaches, seizure, head trauma, disorientation, speech dysfunction, gait or balance problems, fainting or unconsciousness, other: Psychiatric: denies: Attention Deficit Hyperactivity, anxiety, depression, mood disorder, claustrophobia, other: Ear/Nose/Throat: reports: wisdom teeth removed Musculoskeletal: reports: joint pain, back pain, muscle pain or cramping - Physical Examination Vital signs obtained and documented by: Dr. Osman Blood Pressure: 140/65 Cuff size: long Heart Rate: 68 O2 Saturation: 96 Height: 5 ft 8 in Weight (kg): 122.47 kg Body Mass Index: 41.0 BMI Classification: Class 3 Neck circumference: 19.5 Mood/affect: normal HEENT: No craniofacial malformation Nostrils: patent to airflow Turbinates: normal Septum: midline Mouth and throat: normal Soft palate: normal Hard palate: normal Uvula: normal Tongue: normal in size Tonsils: absent bilaterally Chin and jaw: normal size and position Neck: normal w/o lymphadenopathy or thyromegaly Heart: regular rate and rhythm Lungs: clear bilaterally Abdomen: soft, non-tender Extremities: no edema or clubbing Neurologic: intact, no focal deficits - Impression 1. Obstructive Sleep Apnea-Hypopnea Syndrome, as previously diagnosed.unrefreshed sleep. The patient continues to have excellent treatment compliance. Narrow oropharynx and obesity are common predisposing factors for obstructive sleep apnea-hypopnea syndrome. The pressure of 13 cmH20 is effective. His nose pillows fit well. Because he is now on Medicare, I will issue him a new prescription for supplies. He would also like to switch DME because [employer] never answer his phone calls. - Plan Prescription made for supplies. Avoid alcohol, sedative and muscle relaxant around bedtime. Attempt to lose weight. Return for follow-up in one year. He will be eligible for a new machine then. I spent 100% of this 15 minute visit face to face with the patient with greater than 50% of this was spent time counseling the patient and coordination of care.
== END 2018-12-28 10:41 | disposition home or self-care (01) ==
LOC: SC 10:40
PROVIDERS: ATTEND Internal Medicine Pulmonary Disease
DX: G47.33 Obstructive sleep apnea (adult) (pediatric) (principal)
CPT/HCPCS: 99203; G0463; 99212

== ENCOUNTER 2019-11-23 09:07 | Outpatient (CLI) | payer MEDICARE, OTHER ==
--- NOTE | 2019-11-23 09:42 | SLEEP CARE CONSULTATION ---
Information from patient questionnaire entered by Nakita Lang. I have reviewed and concur with the information entered by Nakita Lang. This document represents the service I personally performed and the decisions made by me, Jose Antonio Osman MD, [facility]. History of Present Illness Service Date and Time: 11/23/2019906 Previous diagnosis: Severe, Obstructive Sleep Apnea-Hypopnea Syndrome AHI: 48 (in 2003) Reason for follow up: annual (last seen 2018) Equipment type: CPAP Equipment obtained from: [employer] Mask style: Nasal pillows Prior sleep studies: Yes Year and Where: 2003 - [place] [facility] [place] additional information: The patient is here for an annual F/U. He is also eligible for a new machine. He has been completely compliant with the treatment. The compliance rate is 100% these past 6 months. Average usage is 8.9 houirs a night. The pressure is at 13 cmH2O. Residual AHI is 1.5. CPAP Compliance Data - Data Reviewed with Patient Average duration of nightly device use: 8.9 Compliance rate %: 100 (180 days) Current pressure setting (cmH2O): 13 Humidity settin Average residual AHI: 1.5 Average large leak: 2 hr 7 min 52 sec Subjective Initial [place] Sleepiness Scale score: 0 (in 2014) Current [place] Sleepiness Scale score: 2 Allergies and Home Medications Drug allergies reviewed: Yes Home medication list reviewed: Yes Review of Systems Review of systems same as previous: Yes Physical Exam Vital signs obtained and entered by: Deferred due to the COVID-19 pandemic Height: 5 ft 8 in Impression and Plan IMPRESSION: 1. Obstructive Sleep Apnea-Hypopnea Syndrome, severe, with the patient doing well on nasal CPAP therapy. He has excellent compliance and significant clinical improvement. The current pressure appears effective and comfortable. His mask fits well. Overall, he is very satisfied with treatment and plans to continue with it long-term. Because the CPAP is now older than the useful life of 5 years, I will order the patient a new one and make it an autoCPAP set between 8 and 13 cmH2O. PLAN: 1. Prescription made for an autoCPAP, heated humidifier, and related supplies. 2. Try to lose weight 3. Try ResMed N30i mask 4. Return for follow up after one month on the new machine. Visit Type: In Office Time Spent with Patient (minutes): 15 Provider Statement: I spent 100% of the Face to Face Visit with the patient with greater than 50% spent counseling the patient and coordination of care.
== END 2019-11-23 09:08 | disposition home or self-care (01) ==
LOC: SC 09:07
PROVIDERS: ATTEND Internal Medicine Pulmonary Disease
DX: G47.33 Obstructive sleep apnea (adult) (pediatric) (principal)
CPT/HCPCS: 99213; G0463; 99212

== ENCOUNTER 2020-01-20 11:01 | Outpatient (CLI) | payer MEDICARE, OTHER ==
--- NOTE | 2020-01-20 11:53 | SLEEP CARE CONSULTATION ---
Information from patient questionnaire entered by Nakita Lang. I have reviewed and concur with the information entered by Nakita Lang. This document represents the service I personally performed and the decisions made by me, Tanya Natarajan ARNP. History of Present Illness Service Date and Time: 01/20/2020 1101 Previous diagnosis: Severe, Obstructive Sleep Apnea-Hypopnea Syndrome AHI: 48 (in 2003) Reason for follow up: first compliance after device update Equipment type: CPAP Equipment obtained from: [employer] Mask style: Nasal pillows Prior sleep studies: Yes Year and Where: 2003 - in [place], [place] HPI additional information: THIERNO BARNES was diagnosed to have severe, AHI 48, obstructive sleep apnea- hypopnea syndrome and returned today for CPAP therapy first compliance after updating device follow-up. Sleep Study - Results Prior sleep studies: Yes Year and Where: 2003 - in [place], [place] CPAP Compliance Data - Data Reviewed with Patient Average duration of nightly device use: 8 hours 31 minutes Compliance rate %: 100 Current pressure setting (cmH2O): 8-13 Heated hose settin Average residual AHI: 1.8 Central apnea: 0.1 Obstructive apnea: 0.7 Average large leak: 30 seconds Compliance data discussion: DME: [facility], first shipment was of previous type of mask supplies. He was told he will get new mask at end of the month. He is happy with the interactions with this DME at this time. Using nasal mask, [employer] He has back up mask, face masks mistakenly sent to him and told to keep 1 month was last change of nasal cushion Subjective Patient concerns: denies: aerophagia, mask discomfort, air blowing in eyes, mask leak noise, condensation in mask/hose, nasal congestion, dry mouth, nose, throat, epistaxis, other Observed to snore while using device: No Current pressure setting perceived as: comfortable On therapy, patient: reports: sleeping better, awakening more refreshed, being more awake and alert during the day, more rested overall. denies: drowsiness while driving Initial [place] Sleepiness Scale score: 0 (in 2014) Current [place] Sleepiness Scale score: 1 Allergies and Home Medications Drug allergies reviewed: Yes (NKDA) Home medication list reviewed: Yes (no changes) Review of Systems Review of systems same as previous: Yes (no changes) Physical Exam Heart Rate: 76 O2 Saturation: 97 Height: 5 ft 8 in Weight: 265 lb 12.8 oz Body Mass Index: 40.4 BMI Classification: Morbidly Obese Impression and Plan 1. Obstructive Sleep Apnea-Hypopnea Syndrome, severe, with good treatment compliance and good apnea control. On CPAP therapy, there is improved sleep quality and feels more rested overall. He has good apnea control on the new pressure range and good compliance so I feel we should be able to see him next for his annual follow up. Patient's apnea severity and rationale for treatment to reduce apnea, improve sleep quality and reduce cardiovascular and cerebrovascular events was reviewed. I also reviewed the benefit of consistent device use of CPAP for hypertension, diabetes, and migraines. He was mistakenly sent the wrong supplies by the DME but he has talked to them and they will be sending him the right nasal cushion masks at the end of the month. They were unable to take the full face masks back or send him more masks until the next month and he was happy with this and how they are working with him at [facility]. 2. Obesity. Patient has is currently trying to lose weight. He is walking a mile a day with his new dog. Currently patients BMI is 41.0. Obesity increases the risk of apnea, CPAP pressure requirements and overall health risks especially cardiovascular and diabetes. Thus patient is advised to continue to lose weight. A diet consultation can be helpful in achieving optimal weight loss goals. [place] chart was reviewed. Continue auto CPAP pressure at 8-13 cm H2O. Notify me if snoring with the mask or feeling that the pressure is too much or too little. Attempt to lose weight. Return for follow-up in one year, or sooner if concerns arise. Visit Type: In Office Time Spent with Patient (minutes): 22 Provider Statement: I spent 100% of the Face to Face Visit with the patient with greater than 50% spent counseling the patient and coordination of care.
== END 2020-01-20 11:02 | disposition home or self-care (01) ==
LOC: SC 11:01
PROVIDERS: ATTEND Nurse Practitioner Family
DX: G47.33 Obstructive sleep apnea (adult) (pediatric) (principal); E66.01 Morbid (severe) obesity due to excess calories; Z68.41 Body mass index [BMI] 40.0-44.9, adult
CPT/HCPCS: 99213; G0463; 99212

== ENCOUNTER 2021-01-26 08:52 | Outpatient (CLI) | payer MEDICARE, OTHER ==
--- NOTE | 2021-01-26 09:38 | SLEEP CARE CONSULTATION ---
Information from patient questionnaire entered by Nakita Lang. I have reviewed and concur with the information entered by Nakita Lang. This document represents the service I personally performed and the decisions made by , Tanya Natarajan ARNP. History of Present Illness Service Date and Time: 01/26/2021 0852 Previous diagnosis: Severe, Obstructive Sleep Apnea-Hypopnea Syndrome AHI: 48 (in 2003) Reason for follow up: annual (last seen 01/2020) Equipment type: CPAP Equipment obtained from: [facility] (getting supplies as needed) Mask style: Nasal pillows Backup mask available: Yes (old mask) Last cushion change: 2 days ago Prior sleep studies: Yes Year and Where: 2003 - [facility] additional information: THIERNO BARNES was diagnosed to have severe, AHI 48, obstructive sleep apnea- hypopnea syndrome and returned today for CPAP therapy annual follow-up. CPAP Compliance Data - Data Reviewed with Patient Average duration of nightly device use: 8 hr 54 min Compliance rate %: 100 (180 days) Current pressure setting (cmH2O): 8-13 Humidity settin Heated hose settin Average residual AHI: 3.3 Average large leak: 31 min 35 sec Subjective Patient concerns: denies: aerophagia, mask discomfort, air blowing in eyes, mask leak noise, condensation in mask/hose, nasal congestion, dry mouth, nose, throat, epistaxis, other Observed to snore while using device: No Current pressure setting perceived as: comfortable On therapy, patient: reports: sleeping better, awakening more refreshed, being more awake and alert during the day, more rested overall. denies: drowsiness while driving Initial [place] Sleepiness Scale score: 0 (in 2014) Current [place] Sleepiness Scale score: 0 Allergies and Home Medications Home medication list reviewed: Yes (Gabapentin for nerve pain) Review of Systems Review of systems same as previous: No (Nerve block/steroid shots for pain in surgery site from kidney mass removal) Physical Exam Heart Rate: 68 O2 Saturation: 99 Height: 5 ft 8 in Weight: 267 lb Weight change since last visit: 2 lb gain Body Mass Index: 40.6 BMI Classification: Morbidly Obese Impression and Plan 1. Obstructive Sleep Apnea-Hypopnea Syndrome, severe, with excellent treatment compliance and good apnea control. On CPAP therapy, the patient has better sleep quality and is more rested overall. Patient is very satisfied with his CPAP therapy. I informed the patient that [employer] has a recall on several devices like the patients machine. Patient was encouraged to register their device online with [employer] for the recall to see if their device is affected. If their device is affected they should start a claim. Patient denies any black particles seen in machine or hoses, any unusual odors coming from device. Patient has not experienced any physical symptoms such as upper airway irritation, headache, skin or eye irritation, asthma, nausea/vomiting, difficulty breathing or chest pain. Patient informed that they may use an inline CPAP filter that they can obtain online to reduce chance of any particles being inhaled or ingested. We discussed thoroughly the health risks of not using the CPAP versus continuing use with the filter in place. If patient is not able to sleep due to waking up choking, gasping for air or other respiratory distress that they may decide to continue using it until it is either replaced or repaired. Patient voiced understanding and agreement with plan. Patient was encouraged to lose weight for their overall health and to reduce apneas. Patient's apnea severity and rationale for treatment to reduce apnea, improve sleep quality and reduce cardiovascular and cerebrovascular events was reviewed. I also reviewed the benefit of consistent device use of CPAP for hypertension, diabetes and migraines. * Continue auto CPAP pressure at 8-13 cmH2O * Patient to register his device with [employer] recall * Notify me if snoring with mask or feeling that the pressure is too much or too little * Attempt to lose weight * Call this office if any problems using CPAP * Return for follow up in 1 year, or sooner if concerns arise Counseling Topics: Spare mask, Weight loss health impact Visit Type: In Office Time Spent with Patient (minutes): 20 Provider Statement: I spent 100% of the Face to Face Visit with the patient with greater than 50% spent counseling the patient and coordination of care.
== END 2021-01-26 08:53 | disposition home or self-care (01) ==
LOC: SC 08:52
PROVIDERS: ATTEND Nurse Practitioner Family
DX: G47.33 Obstructive sleep apnea (adult) (pediatric) (principal); E66.01 Morbid (severe) obesity due to excess calories; Z68.41 Body mass index [BMI] 40.0-44.9, adult
CPT/HCPCS: 99213; G0463; 99212

== ENCOUNTER 2022-01-01 09:02 | Outpatient (CLI) | payer MEDICARE, OTHER ==
[2022-01-01 09:48] VITALS: BP 132/82
--- NOTE | 2022-01-01 09:48 | SLEEP CARE CONSULTATION ---
Information from patient questionnaire entered by Kenisha So MA. I have reviewed and concur with the information entered by Kenisha So MA. This document represents the service I personally performed and the decisions made by , Tanya Natarajan ARNP. History of Present Illness Service Date and Time: 01/01/2022 0902 Previous diagnosis: Severe, Obstructive Sleep Apnea-Hypopnea Syndrome AHI: 48 (in 2003) Reason for follow up: annual (LAST SEEN 12/2020, JOSE MANUEL, JIMENEZ 12/14/2019, ) Equipment type: CPAP Equipment obtained from: [employer] (getting supplies as needed) Mask style: Nasal pillows Backup mask available: Yes (old mask) Last cushion change: 3 weeks Prior sleep studies: Yes Year and Where: 2003 - in [facility] additional information: THIERNO BARNES was diagnosed to have severe, AHI 48.0, obstructive sleep apnea-hypopnea syndrome and returned today for CPAP therapy annual follow-up. Sleep Study - Results Prior sleep studies: Yes Year and Where: 2003 - in [place], [place] CPAP Compliance Data - Data Reviewed with Patient Average duration of nightly device use: 8 hours 14 minutes Compliance rate %: 96.7 (10/03/21-12/31/21; 87/90 days used) Current pressure setting (cmH2O): 8-13 Humidity setting: off Heated hose settin Average residual AHI: 1.8 Average large leak: 6 mins 31 secs Subjective Patient concerns: denies: aerophagia, mask discomfort, air blowing in eyes, mask leak noise, condensation in mask/hose, nasal congestion, dry mouth, nose, throat, epistaxis, other Observed to snore while using device: No Current pressure setting perceived as: comfortable On therapy, patient: reports: sleeping better, awakening more refreshed, being more awake and alert during the day, more rested overall. denies: drowsiness while driving Initial [place] Sleepiness Scale score: 0 (in 2014) Current [place] Sleepiness Scale score: 0 Allergies and Home Medications Home medication list reviewed: Yes (no changes) Allergy and home medication list: Allergies No Known Drug Allergies Allergy (Verified 11/01/17 11:23) Review of Systems Review of systems same as previous: Yes (no changes) Physical Exam Vital signs obtained and entered by: Moris SO CMA AAKS Blood Pressure: 132/82 (LEFT, ) Heart Rate: 82 O2 Saturation: 98 Height: 5 ft 8 in Weight: 235 lb (CLOTHES) Weight change since last visit: 32 lb loss Body Mass Index: 35.7 BMI Classification: Obese Impression and Plan 1. Obstructive Sleep Apnea-Hypopnea Syndrome, severe, with good treatment compliance and good apnea control. On CPAP therapy, the patient has better sleep quality and is more rested overall. Patient received a new Dreamstation from [email or web address]. We were able to get compliance information from his machine. Patient's apnea severity and rationale for treatment to reduce apnea, improve sleep quality and reduce cardiovascular and cerebrovascular events was reviewed. I also reviewed the benefit of consistent device use of CPAP for hypertension, diabetes and migraines. 2. Obesity, unspecified. Patient has lost weight. Currently patients BMI is 35.7. Obesity increases the risk of apnea, CPAP pressure requirements and overall health risks especially cardiovascular and diabetes. Thus patient is advised to continue to try to lose weight. Weight loss can be done with reducing portion size, reducing refined foods and balancing content with vegetables, fruit and whole grain foods. In addition, patient encouraged to get regular exercise. * Continue auto CPAP pressure at 8-13 cmH2O * Notify me if snoring with mask or feeling that the pressure is too much or too little * Attempt to lose weight * Call this office if any problems using CPAP * Return for follow up in 1 year, or sooner if concerns arise Counseling Topics: Spare mask, Weight loss health impact Visit Type: In Office Time Spent with Patient (minutes): 22 Provider Statement: I spent 100% of the Face to Face Visit with the patient with greater than 50% spent counseling the patient and coordination of care.
== END 2022-01-01 09:03 | disposition home or self-care (01) ==
LOC: SC 09:02
PROVIDERS: ATTEND Nurse Practitioner Family
DX: G47.33 Obstructive sleep apnea (adult) (pediatric) (principal); E66.9 Obesity, unspecified; Z68.35 Body mass index [BMI] 35.0-35.9, adult
CPT/HCPCS: 99213; G0463; 99212

== ENCOUNTER 2023-02-18 08:44 | Outpatient (CLI) | payer MEDICARE, OTHER ==
--- NOTE | 2023-02-18 09:26 | Sleep Patient Instructions ---
Sleep Center Visit Summary - Patient Visit Information Reason for Visit: Annual visit for CPAP therapy - Patient Instructions Additional Instructions: You will continue with CPAP therapy with pressure set at 8-13 cmH2O. A supply prescription will be updated with your DME. We encourage you to continue to try to lose weight. Please follow up with the sleep care office in 1 year. - Clinic Information Contact: [facility] [address] [place] [address] [email or web address] T: [phone]
--- NOTE | 2023-02-18 09:29 | SLEEP CARE CONSULTATION ---
Information from patient questionnaire entered by Yumiko Willard. I have reviewed and concur with the information entered by Yumiko Willard. This document represents the service I personally performed and the decisions made by me, Tanya Natarajan ARNP. History of Present Illness Service Date and Time: 02/18/2023 0844 Previous diagnosis: Severe, Obstructive Sleep Apnea-Hypopnea Syndrome AHI: 48 (in 2003) Reason for follow up: annual (LAST SEEN 12/2021) Equipment type: CPAP (RESMED Airsense 11, 07/2022) Equipment obtained from: [employer] (getting supplies as needed) Mask style: Nasal Mask brand: Respironics (Dreamwear) Backup mask available: Yes (old mask) Last cushion change: 3 weeks Prior sleep studies: Yes Year and Where: 2003 - [place] [facility] additional information: THIERNO BARNES was diagnosed to have severe, AHI 48, obstructive sleep apnea- hypopnea syndrome and returned today for CPAP therapy annual follow-up. Sleep Study - Results Prior sleep studies: Yes Year and Where: 2003 - [facility] [place], [place] CPAP Compliance Data - Data Reviewed with Patient Average duration of nightly device use: 8 hours 22 minutes Compliance rate %: 90.6 (08/22/2022-02/18/2023; 169/181 days used) Current pressure setting (cmH2O): 8-13 Average residual AHI: 2.8 Average large leak: 20 mins 30 secs Subjective Patient concerns: denies: aerophagia, mask discomfort, air blowing in eyes, mask leak noise, condensation in mask/hose, nasal congestion, dry mouth, nose, throat, epistaxis Observed to snore while using device: No Current pressure setting perceived as: comfortable On therapy, patient: reports: sleeping better, awakening more refreshed, being more awake and alert during the day, more rested overall. denies: drowsiness while driving Initial [place] Sleepiness Scale score: 0 (in 2014) Current [place] Sleepiness Scale score: 4 Allergies and Home Medications Known drug allergies: No Drug allergies reviewed: Yes Home medication list reviewed: Yes (no changes) Allergy and home medication list: Allergies No Known Drug Allergies Allergy (Verified 02/17/23 08:23) Review of Systems Review of systems same as previous: Yes (no changes) Physical Exam Vital signs obtained and entered by: Tanya Rosa NP Blood Pressure: 167/83 (pain 8/10 around kidney, chronic; no meds yet this AM) Cuff size: wrist (right) Heart Rate: 65 O2 Saturation: 98 Height: 5 ft 8 in Weight: 254 lb 6.4 oz Body Mass Index: 38.7 BMI Classification: Obese Impression and Plan 1. Obstructive Sleep Apnea-Hypopnea Syndrome, severe, with good treatment c ompliance and good apnea control. On CPAP therapy, the patient has better sleep quality and is more rested overall. Patient has significant improvement of their sleep apnea and is satisfied with current CPAP therapy. Patient denies problems with oral dryness, nasal congestion, epistaxis, skin irritation or aerophagia. Patient's apnea severity and rationale for treatment to reduce apnea, improve sleep quality and reduce cardiovascular and cerebrovascular events was reviewed. I also reviewed the benefit of consistent device use of CPAP for hypertension, diabetes and migraines. 2. Obesity, unspecified. Currently patients BMI is 38.7. Obesity increases the risk of apnea, CPAP pressure requirements and overall health risks especially cardiovascular and diabetes. Thus patient is advised to lose weight. 3. Elevated blood pressure reading in patient with hypertension. His blood pressure was elevated at 167/83 today. He states he is in pain that he is rating 8/10 that is chronic over the last 5 years since kidney surgery. He states he also has not taken his blood pressure medications this morning. He denies any chest pain, headaches, shortness of breath or lightheadedness. He states he has an appointment with his primary provider next week and he will talk to them about his blood pressure and pain. * Continue auto CPAP pressure at 8-13 cmH2O * Update supplies * Notify me if snoring with mask or feeling that the pressure is too much or too little * Attempt to lose weight * Call this office if any problems using CPAP * Return for follow up in 1 year, or sooner if concerns arise Counseling Topics: Spare mask, Weight loss health impact Visit Type: In Office Time Spent with Patient (minutes): 28 Provider Statement: I spent 100% of the Face to Face Visit with the patient with greater than 50% spent counseling the patient and coordination of care.
[2023-02-18 09:39] VITALS: BP 167/83; O2SAT 98
== END 2023-02-18 08:45 | disposition home or self-care (01) ==
LOC: SC 08:44
PROVIDERS: ATTEND Nurse Practitioner Family
DX: G47.33 Obstructive sleep apnea (adult) (pediatric) (principal); E66.9 Obesity, unspecified; Z68.38 Body mass index [BMI] 38.0-38.9, adult; I10 Essential (primary) hypertension
CPT/HCPCS: 99213; G0463; 99212